=== PATIENT | female | born 1975 | race Caucasian/White ===

== ENCOUNTER 2017-05-01 13:02 | Emergency (ER) | payer OTHER ==
[~2017-05-01] VITALS: Ht 157.5 cm; Wt 52.2 kg
[2017-05-01 14:21] LABS: BASOPHIL % 0.3 % (0-2); PLATELET COUNT 261 x10^3mcL (130-400)
[2017-05-01 14:25] LABS: CALCIUM 9.1 mg/dL (8.5-10.1); CARBON DIOXIDE 28.7 mmol/L (21-32); CHLORIDE SERUM 102 mmol/L (98-107); GFR1 > 60 mL/min; GLUCOSE SERUM 172 mg/dL (74-106); POTASSIUM SERUM 3.7 mmol/L (3.5-5.1); SODIUM SERUM 140 mmol/L (136-145)
[2017-05-01 14:33] LABS: UA SPECIFIC GRAVITY <=1.005 (1.005-1.035); microscopic required? YES; urine erythrocyte 1+ (NEGATIVE)
[2017-05-01 16:08] VITALS: BP 116/78
== END 2017-05-01 16:08 | disposition home or self-care (01) ==
LOC: ED 13:02
PROVIDERS: Emergency Medicine
DX: R10.30 Lower abdominal pain, unspecified (principal); R03.0 Elevated blood-pressure reading, without diagnosis of hypertension
CPT/HCPCS: 36415